=== PATIENT | male | born 1985 | race Caucasian/White ===

== ENCOUNTER 2025-05-15 21:55 | Emergency (ER) | payer OTHER, SELFPAY ==
[2025-05-15 21:56] VITALS: BP 132/98; PULSE 88; RESP 18; TEMP 36.8; O2SAT 100; BMI 19.4
--- NOTE | 2025-05-15 22:16 | EDS_ITS ---
HPI History of Present Illness Chief Complaint: General Illness Informant: patient Narrative Narrative: Patient is a 39-year-old male who reports a past medical history of anxiety however he does not take any other medication for this. He also states he does not have any other known medical issues. 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 He states he also became shaky. He states that he is unsure if the shaking is secondary to his illness or from underlying anxiety. He denies any vomiting or blood or discoloration to the stool. He denies any fevers or chills or known sick contact. He states however something similar to this happened roughly 1 month ago but went away after a few hours. However today it has not done so. He states he does not take any daily medications and he denies any history of alcohol or illicit drug use. PFSH PFS Medical History no medical history no medical history Home Medications ?Medication ?Instructions ?Recorded ?Last Taken ?Type prochlorperazine maleate 10 mg 10 mg PO TID PRN nausea and 05/15/25 Unknown Rx tablet (Compazine) vomiting 7 days #21 tabs Allergy/AdvReac Type Severity Reaction Status Date / Time latex AdvReac NEEDS Verified 05/15/25 21:57 FOLLOW-UP Penicillins AdvReac Other Verified 05/15/25 21:57 Surgical History History of dental surgery H/O eye surgery [facility] ED Constitutional Constitutional ED: Reports other Details: Positive fatigue ; Denies chills or fever(s) Eyes Eyes: Denies change in vision ENT ENT ED: Denies rhinorrhea or sore throat Cardiovascular Cardiovascular: Denies chest pain Respiratory/Chest Respiratory/Chest: Denies cough or dyspnea Gastrointestinal Gastrointestinal: Reports abdominal pain, diarrhea and nausea; Denies melena or vomiting Genitourinary Genitourinary ED: Denies dysuria or hematuria Musculoskeletal Musculoskeletal: Denies myalgias Integumentary Denies rash Neurologic Neurologic: Denies headache(s) or paresthesias Psychiatric Psychiatric: Reports anxiety; Denies suicidal ideation or suicidal thoughts Hematologic/Lymphatic Hematologic/Lymphatic: Denies easy bleeding or easy bruising EXAM Physical Exam Const Vital Signs: 05/15/25 21:56 Temperature 98.3 F Temperature Source Oral Pulse Rate 88 Respiratory Rate 18 Blood Pressure 132/98 H Blood Pressure Mean 109 Pulse Ox 100 Oxygen Delivery Method Room Air Positive well nourished and well developed General Appearance ED: well developed; Negative for pallor HEENT Reports moist mucous membranes HEENT Narrative: Normocephalic atraumatic No tongue or lip swelling no oral lesions no airway edema or compromise No secondary findings in the posterior pharynx to suggest infection Eyes PERRL and EOMs intact bilaterally General Eye ED: Negative for scleral icterus Neck supple Neck Narrative: No nuchal rigidity or meningeal signs noted Resp normal respiratory effort and clear to auscultation bilaterally Cardio regular rate and regular rhythm Rate: other Other Details: Regular rate and rhythm without murmurs rubs or gallops Radial and carotid pulses are equal and symmetric GI non-tender, non-distended and no masses GI Narrative: Soft nontender and nondistended with hyperactive bowel sounds. No voluntary guarding or rigidity or pulsatile mass. No fluid wave noted Auscultation: hyperactive bowel sounds Palpation: soft Extremity normal to inspection Neuro oriented x3, CN's II-XII intact bilaterally and no sensory deficits noted Neuro Narrative: Patient does have tremors of bilateral hands but this stops with distraction indicative of anxiety and not true seizure activity Sensorium / Orientation: alert Motor Exam: strength 5/5 throughout Psych Mood & Affect: anxious Skin no rashes or lesions noted and skin turgor normal General Skin Exam: Negative for jaundice or pallor MDM MDM MDM Narrative Medical decision making narrative: Patient arrived to the ER hypertensive otherwise with stable vitals. He reported nausea and feeling anxious with shaking. By history and exam the shaking is related to his underlying anxiety but in order to ensure it is not from acute kidney injury or severe electro abnormality like hypokalemia or hyponatremia basic blood work was obtained. Patient's history and exam indicate symptoms are most likely viral in nature such as norovirus or rotavirus. His white count slight elevated at 12 but he is afebrile and his abdomen is soft and nonsurgical and I feel this is most likely viral or stress response I do not feel the need for a CT scan. Patient's remainder labs do not reveal any signs of pancreatitis or biliary colic or acute cholecystitis. There is no signs of MEERA or clinically significant electrolyte abnormality either. After receiving IV Zofran Benadryl and IV fluids patient reported feeling better and had resolution of symptoms. Therefore at this time as overall workup does not reveal any clinically significant changes patient's had improvement of symptoms with provided treatment in the ER and his abdomen remains soft and nonsurgical he is otherwise safe for discharge with outpatient follow-up History & Record Review Discussion w/independent historian: Patient Lab Data Attestation: I reviewed the patient's lab results. Labs: Laboratory Results - last 24 hr 05/15/25 22:28 WBC 12.0 H RBC 4.94 Hgb 14.4 Hct 42.3 MCV 85.6 MCH 29.1 MCHC 34.0 RDW Std Deviation 39.4 RDW Coeff of Marisol 12.8 Plt Count 264 MPV 10.3 Immature Gran % (Auto) 0.300 Neut % (Auto) 83.9 H Lymph % (Auto) 9.0 L Lander % (Auto) 4.2 Eos % (Auto) 1.9 Baso % (Auto) 0.7 Absolute Neuts (auto) 10.0 H Absolute Lymphs (auto) 1.07 Nucleated RBC % 0 Sodium 139 Potassium 3.7 Chloride 102 Carbon Dioxide 24.3 Anion Gap 13 BUN 10 Creatinine 0.82 Estim Creat Clear Calc 89.66 Est GFR (MDRD) Non-Af 114 BUN/Creatinine Ratio 11.6 Glucose 120 H Calcium 9.2 Magnesium 2.0 Total Bilirubin 0.34 Direct Bilirubin 0.16 AST 17 ALT 15 Alkaline Phosphatase 92 Total Protein 6.9 Albumin 4.4 Globulin 2.5 Lipase 30 Discharge Plan Triage Chief Complaint: General Illness ED Provider: Atul Caldwell Dx/Rx/DC Orders Clinical Impression: Nausea, Mild dehydration, Viral illness Instructions: ED Dehydration (Adult), ED Gastroenteritis, Viral (Adult) Prescriptions: New prochlorperazine maleate [Compazine] 10 mg tablet 10 mg PO TID PRN (Reason: nausea and vomiting) 7 Days Qty: 21 0RF Stand Alone Forms: ED Work / School Excuse Primary Care Provider: [facility] Referrals: [facility] Doctor,Out of [Non-Staff] - Activity Restrictions/Additional Instructions: Workup today does not reveal any clinically significant findings. I feel that your symptoms are related to a viral stomach infection that you most likely picked up from work or out in the community. This will last on average 1 to 3 days but can go as long as 7 to 10 days. Take the Compazine as directed to control further bouts of nausea and keep yourself well-hydrated. Return to the ER should you have any further concerns or worsening of symptoms Print Language: Estonian Disposition Disposition: Home, Self Care
[2025-05-15] MEDS: 0.9% Normal Saline (1000mL) 1,000 ML 999 ML IV (22:34)
[2025-05-15] MEDS: DiphenhydrAMINE 50 MG/ML Syringe 25 MG IV (22:34)
[2025-05-15 22:36] LABS: Hematocrit 42.3 % (40-54); Hemoglobin 14.4 g/dL (13.0-16.5); Immature Granulocytes Count 0.040 X10^3/uL (0.0-0.0); Mean Corp Hgb Conc 34.0 g/dL (32-36); Mean Corpuscular Volume 85.6 fL (80-94); Mean Platelet Vol. 10.3 fl (6.2-12.0); NRBC Flagged by Analyzer 0 % (0-5); Platelet Count 264 K/mm3 (150-450); RBC Distribution Width CV 12.8 % (11.6-14.6); RBC Distribution Width SD 39.4 fl (35.1-43.9); Red Blood Count 4.94 M/mm3 (4.6-6.2); White Blood Count 12.0 K/mm3 (4.4-11.0)
--- OUTSIDE RECORDS SUMMARY | 2025-05-15 22:50 | XMS RPT_ITS | CCD ---
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 Phone [facility] Admitting Unava jeancarlos [facility] Attending Natacha [facility] Primary Care LASHANDA Salamanca Consult[employer] Unavailable PROVIDER, UNKNOWN Consulting Unavailable PROVIDER, UNKNOWN Consulting Unavailable PROVIDER, UNKNOWN Consulting Unavailable Results Test Name Value Interpretation Reference Range Facil ity Urgent Care Visit Reporton 0 05-09-2019 Urgent Care Visit Report [facility] [address] [place] [address] [address] [place] [address] OFFICE VISIT Date of Service: 05/09/19 MR#: [id number] Acct: [id number] Name: SANGEETHA JACOBO Rep #: [id number] : 1985 Provider: Jony HEWITT Age/Sex: 33/M Location: [facility] Status: Signed Intake Intake Visit Reasons: PRE EMPLOYMENT PHYSICAL ([employer]) HPI HPI Details: SANGEETHA JACOBO, is a 33 M who presents to the office today for Office Procedures Physical Exam Coding PE Coding Sports/School Physical: No DOT PE: No Pre-employment PE: Yes Assessment AND Plan Problems 1. Physical exam, pre-employment Z02.1 Plan See scanned preemployment physical examination forms corresponding with today's date Coding Level of Care Code No Charge Diagnoses Physical exam, pre-employment Z02.1 Additional Codes PE Coding - Pre-employment PE: Yes (PREPE) 05/09/19 1246 Date Jony HEWITT Cosigner Signature: Date (if applicable) CC: Normal [facility] Encounters Encounter Date Encounter Type Care Provider Facility Start: 2020 End: 2020 Patient encounter procedure [facility] Summary Purpose Family History No Family History Records FoundNo Family History Records Found Advance Directives No Advanced Directives Records FoundNo Advanced Directives Records Found Additional Source Comments (unrecognized sect ion and content) No Status Records FoundNo Status Records Found INFORMATION SOURCE (unrecogn ized section and content) DATE CREATED AUTHOR 05/09/2019 [facility] DATE CREATED AUTHOR AUTHOR'S ORGANIZ ATION 07/04/2020 [facility] FOR RECORDS PERTAINING TO PATIENTS WHO ARE OR HAVE BEEN ENROLLED IN A CHEMICAL DEPENDENCY/SUBSTANCEABUSE PROGRAM, SOME INFORMATION MAY BE OMITTED. This clinical summary was aggregated from multiple sources. Caution should be exercised in using it in the provision of clinical care. This summary normalizes information from multiple sources, and as a consequence, information in this document may materially change the coding, format and clinical context of patient data. In addition, data may be omitted in some cases. CLINICAL DECISIONS SHOULD BE BASED ON THE PRIMARY CLINICAL RECORDS. [employer] provides no warranty or guarantee of the accuracy or completeness of information in this document.
[2025-05-15 23:06] LABS: AST(SGOT) 17 U/L (<=37); Alanine Aminotransfer ALT/SGPT 15 U/L (<=46); Albumin, Serum 4.4 g/dL (3.5-5.0); Alkaline Phosphatase 92 U/L (40-129); Anion Gap 13 (5-15); BUN 10 mg/dL (4-19); BUN/Creat Ratio 11.6 RATIO (10-20); Bilirubin, Direct 0.16 mg/dL (0.00-0.30); Calcium,Total 9.2 mg/dL (7.6-11.0); Carbon Dioxide 24.3 mmol/L (21.0-32.0); Chloride 102 mmol/L (98-108); Estimated Creatinine Clearance 89.66 ml/min (50-250); Globulin 2.5 g/dL (2.2-4.2); Glucose 120 mg/dL (70-99); Lipase 30 U/L (13-75); Magnesium 2.0 mg/dL (1.5-2.2); Potassium 3.7 mmol/L (3.3-5.1)
[2025-05-15 23:39] VITALS: BP 118/70; PULSE 74; RESP 18; TEMP 37.2; O2SAT 99
== END 2025-05-16 00:25 | disposition home or self-care (01) ==
PROVIDERS: Emergency Provider Emergency Medicine; Visit Provider Emergency Medicine
DX: B34.9 Viral infection, unspecified (principal); F41.9 Anxiety disorder, unspecified; R19.7 Diarrhea, unspecified; R11.0 Nausea; R10.9 Unspecified abdominal pain; E86.0 Dehydration
CPT/HCPCS: 80048; 80076; 83690; 83735; 85025; 96361; 96374; 96375; 99283; J2405